=== PATIENT | female | born 1970 | race Caucasian/White ===

== ENCOUNTER 2024-02-07 20:49 | Emergency (ER) | payer OTHER, SELFPAY ==
[2024-02-07 20:51] VITALS: BP 127/88
--- NOTE | 2024-02-07 21:58 | ED.GENMED ---
History of Present Illness
General
Chief Complaint: DVT/Possible Blood Clot
Source: patient
Time Seen by Provider: 02/07/24 21:34
History of Present Illness
History of Present Illness:
53-year-old female with past medical history of previous DVT, celiac disease, GERD, factor V presenting to the emergency department for evaluation after she started noticing some pain to the right lower extremity couple weeks ago, some bruising to
the mid thigh, today realized that she could potentially have recurrence of DVT after having a previous DVT about 20 years ago which patient reports is from postoperative complications. Denies any trauma, fevers or infectious symptoms, chest pain
or shortness of breath or any other concerns. Currently takes a daily 81 mg aspirin but no other anticoagulants. No other concerns.
Past History
Past History
ED Past Medical History: Other (Factor V Leiden deficiency, celiac disease)
ED Past Surgical History: Cholecystectomy, , Gynecological and Orthopedic
Social History
Tobacco: Smoker
Alcohol: None
Drug: None
Personal:
Living: with family
Employment: Employed
Family History
Family History: Other (Noncontributory)
Review of Systems
Review of Systems
All Other Systems: ROS reviewed and negative except as documented in HPI and ROS
Phy Exam
Physical Exam
Physical Exam:
GENERAL: Alert , in no apparent distress
EYE: conjunctiva clear
Head: Normocephalic atraumatic
NECK: Supple,
ENT: mmm.
LUNGS: no acute respiratory distress
NEUROLOGICAL: Alert and oriented
SKIN: Warm and dry, skin intact. small ecchymosis medial mid right thigh
MUSCULOSKELETAL: well perfused. easily palpable pedal pulse. CR < 2 sec, sensation grossly intact to light touch
PSYCH: Normal and appropriate interaction.
Scores
Heart Failure Risk
Heart Failure Risk Score: Not Applicable
Heart Score for Chest Pain Patients
STEMI patient?: Not applicable
Withdrawal Assessment of Alcohol
Withdrawal Assessment Completed?: Not applicable
Course
Orders/Labs/Results
Orders:
Orders
02/07/24 20:56
US Periph Venous LOWER Ext RT Urgent
Comment:
Reason For Exam: r/o dvt
Vital Signs
Initial and Last Documented VS:
Initial Vital Signs
Temp Pulse Resp BP Pulse Ox
98 F 80 16 127/88 99
02/07/24 20:51 02/07/24 20:51 02/07/24 20:51 02/07/24 20:51 02/07/24 20:51
Last Documented Vital Signs
Temp Pulse Resp BP Pulse Ox
98 F 77 18 114/81 99
02/07/24 20:51 02/07/24 22:33 02/07/24 22:33 02/07/24 22:33 02/07/24 22:33
MDM/Problems Addressed
Differential Diagnosis Includes:
DVT, phlebitis, varicose vein, PVD, PAD
MDM/Problems Addressed:
53-year-old female presenting to the emergency department for evaluation for possible DVT to the right lower extremity. Patient with history of DVT provoked from previous surgery about 20 years ago. Has history of factor V. Currently stable.
Ultrasound ordered to rule out DVT.
Chronic conditions affecting care: Other (Previous DVT)
*Radiology
Radiology exam reviewed: radiology read reviewed
*Pulse Oximetry
Patient hypoxic: no
*Critical Care Note
Total Time (30-74mins, 75-104mins- exclusive of procedures): Not Applicable
Patient Management
Escalation/DeEscalation of care consider admission/obs:
Patient's ultrasound negative for DVT. Stable for discharge home and outpatient management with primary care provider. Aware of return precautions to the emergency department.
ED Attending Note
-
Portions of this chart may have been created with voice recognition software.� Occasional wrong word or��sound alike� substitutions may have occurred due to the inherent limitations of voice recognition software.
Discharge Plan
Departure
Patient Disposition: Home (Routine Discharge)
Date of Disposition: 02/07/24
Time of Disposition: 22:28
Patient with high blood pressure during this ER visit?: No
Discharge Problem:
Ecchymosis
Instructions: Contusion
Prescriptions:
No Action
rizatriptan [Maxalt] 10 MG tablet
10 mg PO PRN PRN (Reason: migraine)
aspirin 81 MG tablet,chewable
81 mg PO DAILY
ondansetron 4 MG tablet,disintegrating
4 mg PO TIDPRN PRN (Reason: nausea)
cholecalciferol (vitamin D3) 2,000 UNITS tablet
2,000 units PO DAILY
Ozempic 1 mg/dose (2 mg/1.5 mL) Pen Injector
1 mg SC PORTILLO
epinephrine 0.3 mg/0.3 mL Auto-Injector
0.3 mg IM ONCE PRN (Reason: Allergic Reaction)
Vitamin B-12 5,000 mcg/mL Drops
10,000 mcg SUBLINGUAL DAILY
Relizen 160 mg Tablet
320 mg PO DAILY
DHEA
5 mg PO DAILY
Methylfolate 7,500 mcg tablet
7,500 mcg PO DAILY
Pregnenole
25 mg PO DAILY
Delta 8
1 gummy PO PRN PRN (Reason: insomnia)
Referrals:
Chasity Berrios MD [Family Provider] -
Interventions
Interventions:
*Risk Screen - Suicide Last Done: 02/07/24 20:51
*General Assessment Last Done: 02/07/24 20:51
*Neglect/Abuse Screening Last Done: 02/07/24 20:51
ED- Fall Risk Assessment Last Done: 02/07/24 22:35
*ED COVID-19 Vaccine History Last Done: 02/07/24 21:19
*Nursing Disposition Last Done: 02/07/24 22:35
ED- Cardiac Assessment Last Done: 02/07/24 21:29
ED- Pulmonary Assessment Last Done: 02/07/24 21:29
ED-Peripheral Vascular Assessment Last Done: 02/07/24 21:29
ED-Skin Assessment Last Done: 02/07/24 21:29
Discharge Date and Time
Discharge Date/Time: 02/07/24 22:36
Print Language: [place]ET[place]
[2024-02-07 22:33] VITALS: BP 114/81
== END 2024-02-07 22:36 | disposition home or self-care (01) ==
LOC: EMR 20:49
PROVIDERS: EMERGENCY PHYSICIAN Student in an Organized Health Care Education/Training Program; FAMILY PHYSICIAN Family Medicine
DX: S70.11XA Contusion of right thigh, initial encounter (principal); X58.XXXA Exposure to other specified factors, initial encounter; K21.9 Gastro-esophageal reflux disease without esophagitis; D68.51 Activated protein C resistance; K90.0 Celiac disease; F17.200 Nicotine dependence, unspecified, uncomplicated
CPT/HCPCS: 99284; 93971

== ENCOUNTER → 2024-06-15 11:13 | Outpatient (REF) | payer OTHER, SELFPAY | LOC: HWRAD 11:13 | PROVIDERS: ATTENDING PHYSICIAN Nurse Practitioner Family | DX: Z87.891 Personal history of nicotine dependence (principal) | CPT/HCPCS: 71271 ==

== ENCOUNTER → 2024-06-20 14:40 | Outpatient (REF) | payer OTHER, SELFPAY | LOC: WDC 14:40 | PROVIDERS: ATTENDING PHYSICIAN Nurse Practitioner Family | DX: Z12.31 Encounter for screening mammogram for malignant neoplasm of breast (principal) | CPT/HCPCS: 77063; 77067 ==

== ENCOUNTER → 2024-07-10 08:32 | Outpatient (REF) | payer OTHER, SELFPAY | LOC: MRI 08:32 | PROVIDERS: ATTENDING PHYSICIAN Physical Medicine & Rehabilitation; FAMILY PHYSICIAN Family Medicine | DX: M54.12 Radiculopathy, cervical region (principal) | CPT/HCPCS: 72141 ==